=== PATIENT | male | born 1990 | race Caucasian/White ===

== ENCOUNTER 2016-09-22 04:00 | Inpatient (IN) | payer OTHER ==
[~2016-09-22] VITALS: Ht 175.3 cm; Wt 74.8 kg
--- NOTE | ~2016-09-22 | PN ---
Unit #: [id number] #: [id number] Patient: FLYNN JAVED [id number] [facility] [address] [place] [address] [id number] MR#: [id number] NAME: FLYNN JAVED ROOM: P121 Age: 26 Sex: M Admission Date: 09/22/2016 : 1990 Attending Physician: Darinel Hung M.D. Admitting Physician: Darinel Hung M.D. Primary Care Physician: Generic Doctor Not In System [facility] PROGRESS NOTES DATE 09/23/2016 DISCUSSION The patient is now denying that his ingestion of Benadryl was a suicide attempt stating that he was "just trying to constitution party." The patient is purposely vague during interview claiming that he has been admitted at [facility] in the past for reasons which he states he does not recall. He then admits that he was admitted there after having sustained self-inflicted lacerations. We will plan to watch the patient for the conclusion of 72 hours observation. If he continues to deny suicidal ideation, I will likely discharge the patient tomorrow as he is participating to no significant degree in the therapeutic milieu. Dictated by... Darinel Hung M.D. CB/elizabeth TD: 09/23/2016 16:05 JOB #: [id number] [facility] PROGRESS NOTES Page 1 of 1 X Darinel Hung MD X PROGRESS NOTE
--- NOTE | ~2016-09-22 | HP ---
Unit #: [id number] #: [id number] Patient: FLYNN JAVED [id number] [facility] [address] [place] [address] [id number] MR#: [id number] NAME: FLYNN JAVED ROOM: P121 Age: 26 Sex: M Admission Date: 09/22/2016 : 1990 Attending Physician: Darinel Hung M.D. Admitting Physician: Darinel Hung M.D. Primary Care Physician: Generic Doctor Not In System HISTORY AND PHYSICAL HISTORY OF PRESENT ILLNESS The patient is a 26-year-old man who has been admitted to [facility] for suicidal ideations. PAST MEDICAL HISTORY History of suicide attempt, self-harming behaviors. PAST SURGICAL HISTORY None. ALLERGIES Tylenol, Haldol and Depakote. SOCIAL HISTORY Patient uses marijuana and cocaine. FAMILY HISTORY Medically noncontributory. REVIEW OF SYSTEMS CONSTITUTIONAL: Denies fever or chills. HEENT: Denies sore throat, ear pain or runny nose. CARDIOVASCULAR: Denies chest pain, irregular heart rhythm or palpitations. CHEST: Denies shortness of breath or cough. No hemoptysis. GASTROINTESTINAL: Denies nausea, vomiting, diarrhea or chronic constipation. ENDOCRINE: Denies increased thirst or urination. Denies recent weight loss or weight gain. GENITOURINARY: Denies dysuria, frequency, or hematuria. SKIN: Denies rashes. Endorses scars. HEMATOLOGIC: Denies any increased bleeding or bruising. MUSCULOSKELETAL: Denies hot, swollen joints. No generalized muscle pain. NEUROLOGIC: Denies problems with speech, vision, numbness, tingling. Denies loss of bowel or bladder control. HOME MEDICATIONS 1. Artane 10 mg p.o. in the morning. 2. Artane 5 mg p.o. in the p.m. 3. Effexor XR 225 mg p.o. in the evening. PHYSICAL EXAMINATION GENERAL: Patient is awake, alert, in no acute distress. VITAL SIGNS: Temperature, he refused to have his temperature taken, heart Unit #: [id number] #: [id number] Patient: FLYNN JAVED rate 112, respirations 17, blood pressure 143/88. HEIGHT: 5 feet 9 inches. WEIGHT: 165 pounds. HEENT: Head is atraumatic, normocephalic. Pupils equal, round and reactive. Extraocular movements are intact. No drainage from ears or nares. NECK: Supple. Trachea is midline. HEART: Regular rate and rhythm. LUNGS: Clear. ABDOMEN: Soft, nontender, nondistended. : Not done. SKIN: Warm, dry without any unusual rashes or lesions. EXTREMITIES: No clubbing, edema or cyanosis. NEUROLOGICAL: Cranial nerves II through XII intact. No focal deficits. Sensory and motor function grossly normal. Moves all extremities well. Coordination, gait normal. Deep tendon reflexes intact. IMPRESSION Psychiatric admission. RECOMMENDATIONS PSYCHIATRIC: Will be per psychiatry. MEDICAL: I see no contraindication to participate in facility's activities. MEDICAL PROGNOSIS Fair. MEDICAL CONDITION Stable. Dictated by... Vanesa Keane A.P.R.N. for Ivy Zaidi M.D. AM/elizabeth TD: 09/22/2016 15:17 JOB #: [id number] HISTORY AND PHYSICAL Page 1 of 1 X Vanesa Keane APRN X HISTORY AND PHYSICAL
--- NOTE | ~2016-09-22 | CO ---
Unit #: [id number] #: [id number] Patient: FLYNN JAVED [id number] [place] [address] [id number] MR#: [id number] NAME: FLYNN JAVED ROOM: [facility] Age: 26 Sex: M Admission Date: 09/22/2016 : 1990 Attending Physician: Darinel Hung M.D. Primary Care Physician: Generic Doctor Not In System Consultation Date: 09/22/2016 CONSULTATION REPORT REASON FOR CONSULTATION Sutures. SUBJECTIVE The patient states that he cut his left forearm. Sutures were placed today at an emergency department in [place]. The patient denies any nausea, vomiting, fever, or chills. OBJECTIVE GENERAL: The patient is awake, alert, in no acute distress. VITAL SIGNS: Heart rate 112, respirations 17, and blood pressure 143/88. HEENT: Head is atraumatic and normocephalic. Pupils are equal, round, and reactive. Extraocular movements are intact. CHEST: Lungs are clear. CARDIOVASCULAR: S1 and S2. SKIN: The patient has sutures on his left forearm. No signs or symptoms of infection. ASSESSMENT Left arm laceration with sutures. PLAN At this time, there are no signs or symptoms of infection to the sutures. We will keep the sutures in for approximately 7 days. The nursing staff has been informed to call for any signs or symptoms of infection. Dictated by... Vanesa Keane A.P.R.N. for Ivy Zaidi M.D. AM/jess TD: 09/22/2016 17:03 JOB #: [id number] Unit #: [id number] #: [id number] Patient: FLYNN JAVED CONSULTATION REPORT Page 1 of 1 X Vanesa Keane APRN X CONSULTATION REPORT
--- NOTE | ~2016-09-22 | PA ---
Unit #: [id number] #: [id number] Patient: FLYNN JAVED [id number] [facility] [address] [place] [address] [id number] I MR#: [id number] NAME: FLYNN JAVED ROOM: [facility] Age: 26 Sex: M Admission Date: 09/22/2016 : 1990 Date of Assessment: 09/22/2016 Attending Physician: Darinel Hung M.D. Admitting Physician: Darinel Hung M.D. Primary Care Physician: Generic Doctor Not In System PSYCHIATRIC ASSESSMENT IDENTIFYING INFORMATION The patient is a 26-year-old white male admitted in transfer from [facility] in [place] where he had arrived claiming to have taken an overdose of 60 Benadryl. CHIEF COMPLAINT None given. INFORMANT(S) Chart. Patient cannot be aroused for interview. HISTORY OF PRESENT ILLNESS The patient is a 26-year-old white male who had presented to [facility] in [place] with what was thought to be an altered mental status. The patient claimed to have taken an overdose of Benadryl. His drug screen is also positive for cocaine and cannabinoids. The patient was limited in his ability to be assessed, and when seen today he is sleeping soundly and cannot be aroused for interview. The patient started to indicate that he is prescribed Artane and Effexor. It is unclear why he would be taking these medications. The patient refused to allow staff to contact family in the emergency room in [place]. He was placed on a 72-hour hold given threats of suicide made. PAST PSYCHIATRIC HISTORY As noted previously, the patient claimed to have been prescribed Artane and Effexor, but it is unclear who had prescribed these medications. PAST MEDICAL HISTORY Noncontributory. MEDICATIONS As above. ALLERGIES None reported. FAMILY HISTORY Not obtained. SOCIAL HISTORY Apart from the substance abuse history, and the fact that the patient lives with his mother and grandmother no social history is available. Unit #: [id number] #: [id number] Patient: FLYNN JAVED MENTAL STATUS EXAMINATION Examination at this time reveals the patient to be a soundly sleeping white male who is abed and sleeping soundly. Multiple attempts to arouse the patient are unsuccessful. ASSETS AND LIABILITIES The patient's assets are to be assessed. Liabilities: Lack of resources. DIAGNOSTIC IMPRESSION 1. Cocaine use disorder. 2. Cannabis use disorder. 3. Psychotic disorder, unspecified. 4. Status post diphenhydramine ingestion per patient report. ASSETS AND LIABILITIES Assets: To be assessed. Liabilities: Lack of resources. Poor compliance with treatment. TREATMENT PLAN The patient remains hospitalized for safety and stabilization. I have left an order for p.r.nIna Granadosydis should the patient exhibit any aggressive behaviors. ESTIMATED LENGTH OF STAY 3 to 5 days. Dictated by... Darinel Hung M.D. Eva TD: 09/22/2016 13:39 JOB #: [id number] PSYCHIATRIC ASSESSMENT Page 1 of 1 X Darinel Hung MD X PSYCHIATRIC ASSESSMENT
== END 2016-09-24 17:51 | disposition home or self-care (01) | DRG 897 ==
LOC: P1S 10:42
DX: F14.90 Cocaine use, unspecified, uncomplicated (principal); R45.851 Suicidal ideations; F12.90 Cannabis use, unspecified, uncomplicated; F39 Unspecified mood [affective] disorder; S51.812D Laceration without foreign body of left forearm, subsequent encounter

== ENCOUNTER 2016-09-26 08:00 | Inpatient (IN) | payer OTHER ==
[~2016-09-26] VITALS: Ht 175.3 cm; Wt 86.2 kg
--- NOTE | ~2016-09-26 | HP ---
Unit #: [id number] #: [id number] Patient: ELIANA JAVED [id number] [facility] [address] [place] [address] [id number] I MR#: [id number] NAME: ELIANA JAVED ROOM: [facility] Age: 26 Sex: M Admission Date: 09/26/2016 : 1990 Attending Physician: Darinel Hung M.D. Admitting Physician: Darinel Hung M.D. Primary Care Physician: Generic Doctor Not In System HISTORY AND PHYSICAL The patient is a 26-year-old male admitted to [facility] on 09/26/2016 for suicidal ideations. Patient had a recent admission on 09/22/2016 where a full history and physical was completed. That history and physical has been reviewed. No changes need to be made. Dictated by... Janina Javier/lucretia TD: 09/27/2016 00:00 JOB #: [id number] HISTORY AND PHYSICAL Page 1 of 1 X MAGEN TELLO APRN HISTORY AND PHYSICAL
--- NOTE | ~2016-09-26 | PA ---
Unit #: [id number] #: [id number] Patient: ELIANA JAVED [id number] [facility] [address] [place] [address] [id number] MR#: [id number] NAME: ELIANA JAVED ROOM: P183 Age: 26 Sex: M Admission Date: 09/26/2016 : 1990 Date of Assessment: 09/27/2016 Attending Physician: Darinel Hung M.D. Admitting Physician: Darinel Hung M.D. Primary Care Physician: Generic Doctor Not In System PSYCHIATRIC ASSESSMENT REASON FOR ADMISSION The patient is a 26-year-old white male who now admits that he lied about a suicide attempt in order to gain admission to this hospital and subsequent transportation back to his home in [facility]. INFORMANT(S) Patient. RELIABILITY Poor. CHIEF COMPLAINT None given. HISTORY OF PRESENT ILLNESS The patient is a 26-year-old white male last discharged from this facility on 09/24/2016. The patient reported to [facility] claiming to have taken an overdose of Benadryl. The patient now admits that he had lied about the overdose stating that he wished to be admitted to this facility so that he could be transported back to his home town in [place]. The patient vehemently denies any current suicidal or homicidal ideation. For a more complete history of present illness, please refer to previous dictated notes. PAST PSYCHIATRIC HISTORY Reviewed, no changes. FAMILY HISTORY Reviewed, no changes. SOCIAL HISTORY Reviewed, no changes. MEDICAL HISTORY Reviewed, no changes. MEDICATION HISTORY 1. Artane. 2. Effexor XR. 3. Prolixin decanoate. ALLERGIES None reported. Unit #: [id number] #: [id number] Patient: ELIANA JAVED MENTAL STATUS EXAM At this time, reveals the patient to be a well-developed, well-nourished white male appearing stated age. He is in no apparent physical distress at the time of examination. He is awake, alert, oriented in all spheres. His mood is euthymic. His affect full range. Speech is generally relevant and coherent. There are no gross deficits in memory or cognition noted. Intelligence is judged to be in the average range based on fund of knowledge. The patient is cooperative throughout the interview. He denies current suicidal/homicidal ideation or psychotic features. Judgement and insight appear to be intact. ASSETS AND LIABILITIES Patient's assets to be assessed. Liabilities, lack of resources. DIAGNOSTIC IMPRESSION 1. Schizoaffective disorder by history. 2. Borderline personality disorder. 3. Malingering. PSYCHIATRIC PLAN/TREATMENT GOALS The patient will be discharged today with no medication changes reported. He is admitting to have fabricated symptoms in order to gain admission to the hospital and subsequent transportation to his hometown. Dictated by... Darinel Hung M.D. RAUL/elizabeth TD: 09/27/2016 13:34 JOB #: [id number] PSYCHIATRIC ASSESSMENT Page 1 of 1 X Darinel Hung MD X PSYCHIATRIC ASSESSMENT
--- NOTE | ~2016-09-26 | DS ---
Unit #: [id number] #: [id number] Patient: ELIANA JAVED [id number] [facility] [address] [place] [address] [id number] MR#: [id number] NAME: ELIANA JAVED ROOM: P183 Age: 26 Sex: M Admission Date: 09/26/2016 : 1990 Discharge Date: 09/27/2016 Attending Physician: Darinel Hung M.D. Primary Care Physician: Generic Doctor Not In System DISCHARGE SUMMARY REASON FOR ADMISSION The patient is a 26-year-old white male, who presented to [facility], claiming to have taken a half bottle of Benadryl. He now admits that he had fabricated this attempt in order to gain admission to the hospital and subsequent transportation to his hometown at [place], [place]. HOSPITAL COURSE The patient admitted to this physician that he had fabricated his threats of suicide. He requested discharge on 09/27/2016. He was informed that we could provide transportation only as far as [place], [place], and he was agreeable with this plan. FINAL DIAGNOSES Schizoaffective disorder per patient history, borderline personality disorder, malingering. DISPOSITION ON DISCHARGE The patient is discharged on the following medications; Artane 5 mg q.h.s. and 10 mg q.a.m. for extrapyramidal symptoms, Effexor XR 225 mg daily for depression, Prolixin Decanoate, dose unknown for psychosis. DISCHARGE INSTRUCTIONS No dietary or physical restrictions were placed upon the patient at the time of discharge. FOLLOWUP Followup will take place through the auspices of community mental health resources in the [facility] area. PROGNOSIS The patient's prognosis is considered fair. Dictated by... Darinel Hung M.D. CB/jess TD: 09/28/2016 03:31 JOB #: [id number] Unit #: [id number] #: [id number] Patient: ELIANA JAVED DISCHARGE SUMMARY Page 1 of 1 X Darinel Hung MD X DISCHARGE SUMMARY
--- NOTE | ~2016-09-26 | DS ---
Unit #: [id number] #: [id number] Patient: ELIANA JAVED [id number] [facility] [address] [place] [address] [id number] I MR#: [id number] NAME: ELIANA JAVED ROOM: 83 Age: 26 Sex: M Admission Date: 09/26/2016 : 1990 Discharge Date: 09/27/2016 Attending Physician: Darinel Hung M.D. Primary Care Physician: Generic Doctor Not In System DISCHARGE SUMMARY REASON FOR ADMISSION The patient is a 26-year-old white male, admitted following an ingestion of Benadryl. DIAGNOSTIC STUDIES LABORATORY RESULTS: Included urine drug screen positive for cannabis. HOSPITAL COURSE The patient was admitted to the [address] [place] [address] unit and placed on suicide precautions. He was continued on previously prescribed medications including Effexor and Artane and the patient takes Artane secondary to receiving a monthly injection of Prolixin Decanoate which he states "they started in [facility]." The patient consistently denied suicidal ideation during his brief stay in the hospital. By 09/24/2016, he had been under observation for 3 days and at no point had made any suicidal threats. Continue to complain that he was "just trying to libertarian" when he took his overdose of Benadryl. With inclusion of 72 hours of observation, discharge was ordered. FINAL DIAGNOSES Cocaine use disorder; cannabis use disorder; mood disorder, unspecified. DISPOSITION ON DISCHARGE The patient is discharged on the following medications; Artane 5 mg q.a.m. and 10 mg at h.s. for extrapyramidal symptoms, Effexor XR 225 mg daily for depression. DISCHARGE INSTRUCTIONS No dietary or physical restrictions were placed on the patient at the time of discharge. FOLLOWUP Followup will take place through the auspices of community mental health resources. PROGNOSIS The patient's prognosis is considered fair. Dictated by... Darinel Hung M.D. CB/modl Unit #: [id number] #: [id number] Patient: ELIANA JAVED TD: 09/28/2016 02:28 JOB #: [id number] DISCHARGE SUMMARY Page 1 of 1 X Darinel Hung MD DISCHARGE SUMMARY
== END 2016-09-27 14:15 | DRG 885 ==
LOC: P1E 13:48
DX: F25.9 Schizoaffective disorder, unspecified (principal); F60.3 Borderline personality disorder; Z76.5 Malingerer [conscious simulation]

== ENCOUNTER 2016-10-04 05:00 | Inpatient (IN) | payer OTHER ==
[~2016-10-04] VITALS: Ht 175.3 cm; Wt 79.4 kg
--- NOTE | ~2016-10-04 | HP ---
Unit #: [id number] #: [id number] Patient: ELIANA JAVED [id number] [place] [address] [id number] I MR#: [id number] NAME: ELIANA JAVED ROOM: P255 Age: 26 Sex: M Admission Date: 10/04/2016 : 1990 Attending Physician: Darinel Hung M.D. Admitting Physician: Darinel Hung M.D. Primary Care Physician: Generic Doctor Not In System HISTORY AND PHYSICAL HISTORY OF PRESENT ILLNESS The patient is a 26 year old admitted to [address] [place] [address] reporting visual hallucination. He was just discharged from this facility. The patient was seen and H and P dated 09/22/2016 was reviewed. This is current. No changes. Please see H and P dated 09/22/2016. Dictated by... Raina Zeng/leander TD: 10/05/2016 14:57 JOB #: [id number] HISTORY AND PHYSICAL Page 1 of 1 X Abbi Polo HISTORY AND PHYSICAL
--- NOTE | ~2016-10-04 | PA ---
Unit #: [id number] #: [id number] Patient: ELIANA JAVED [id number] [facility] [address] [place] [address] [id number] MR#: [id number] NAME: ELIANA JAVED ROOM: P255 Age: 26 Sex: M Admission Date: 10/04/2016 : 1990 Date of Assessment: 10/05/2016 Attending Physician: Darinel Hung M.D. Admitting Physician: Darinel Hung M.D. Primary Care Physician: Generic Doctor Not In System PSYCHIATRIC ASSESSMENT IDENTIFYING INFORMATION The patient is a 26-year-old homeless white male admitted after he had presented to [facility] claiming to be experiencing hallucinations and paranoia. CHIEF COMPLAINT "I'm ready to go home. I've got my bus ticket." INFORMANT(S) Patient, reliability is fair. HISTORY OF PRESENT ILLNESS The patient is a 26-year-old male with a history of several previous admissions to this facility over the past few weeks. These have been related to the patient's claims of having taken overdoses of Benadryl though it is a suspicion of this physician that the patient may have feigned these ingestions in order to gain admittance to the hospital given his homeless status. Whatever the case, the patient was admitted to [facility] last evening claiming to have taken a pill which caused him to hallucinate and become paranoid. When seen today, the patient no longer exhibits any psychosis and denies any suicidal or homicidal ideation. He states that he has a bus ticket to return to [facility], and is requesting discharge. For more complete history of present illness, please refer to previously dictated notes. PAST PSYCHIATRIC HISTORY Reviewed, no changes. PAST MEDICAL HISTORY Reviewed, no changes. MEDICATIONS Artane, Effexor XR, Prolixin Decanoate. ALLERGIES Acetaminophen, Haldol, Depakote, onions. FAMILY HISTORY Reviewed, no changes. SOCIAL HISTORY Reviewed, no changes. Unit #: [id number] #: [id number] Patient: ELIANA JAVED MENTAL STATUS EXAMINATION Examination at this time reveals the patient to be a well-developed well-nourished white male appearing stated age. He is in no apparent physical distress at the time of examination. He is awake, alert, and oriented in all spheres. His mood is euthymic, his affect full range. Speech is generally well coherent. There are no gross deficits in memory or cognition noted. Intelligence is judged to be in the average range based on fund of knowledge. The patient is cooperative throughout the interview. He is denying current suicidal or homicidal ideation or psychotic features. Judgment and insight appear to be reasonably intact. No signs of tardive dyskinesia are noted. ASSETS AND LIABILITIES The patient's assets are to be assessed. Liabilities: Lack of resources, sociopathy, possible malingering. DIAGNOSTIC IMPRESSION 1. Schizoaffective disorder per patient history. 2. Malingering. DISPOSITION ON DISCHARGE The patient is discharged on the following medications: 1. Artane 10 mg q. day and 5 mg at h.s. for extrapyramidal symptoms. 2. Prolixin Decanoate dose unknown intramuscularly q. 2 weeks for psychosis. 3. Effexor XR 25 mg daily for depression. DIET AND ACTIVITY No dietary or physical restrictions placed on the patient at the time of discharge. FOLLOWUP Followup will take place through the auspices of community mental health resources. PROGNOSIS Remains guarded. Dictated by... Darinel Hugn M.D. CB/leander TD: 10/05/2016 13:31 JOB #: [id number] Unit #: [id number] #: [id number] Patient: ELIANA JAVED PSYCHIATRIC ASSESSMENT Page 1 of 1 X Darinel Hung MD X PSYCHIATRIC ASSESSMENT
--- NOTE | ~2016-10-04 | DS ---
Unit #: [id number] #: [id number] Patient: ELIANA JAVED [id number] [facility] [address] [place] [address] [id number] I MR#: [id number] NAME: ELIANA JAVED ROOM: P255 Age: 26 Sex: M Admission Date: 10/04/2016 : 1990 Discharge Date: 10/05/2016 Attending Physician: Darinel Hung M.D. Primary Care Physician: Generic Doctor Not In System DISCHARGE SUMMARY REASON FOR ADMISSION The patient is a 26-year-old white male, admitted after he had presented to [facility] claiming to be experiencing psychosis after ingesting a pill of unknown origin. DIAGNOSTIC STUDIES LABORATORY RESULTS: Pending at the time of discharge. HOSPITAL COURSE The patient was admitted to the [facility] unit and placed on suicide precautions. He denied suicidal ideation when seen by this physician on 10/05/2016 and denied any psychotic symptoms. He exhibited no impairment of judgment or insight and his mood was noted to be euthymic and his affect full range. He requested discharge on that day citing a wish to return to his home of [place], [place]. He was not felt to meet criteria for involuntary hospitalization at that point and there was strong suspicion on this physician's that the patient had in fact fabricated his symptoms of "psychosis" in order to gain admittance to the hospital. Discharge was ordered. FINAL DIAGNOSES Schizoaffective disorder per patient's history; borderline personality disorder, malingering. DISPOSITION ON DISCHARGE The patient is discharged on the following medications: Artane 10 mg q.a.m., 5 mg at h.s. for extrapyramidal symptoms; Effexor XR 225 mg daily for depression; Prolixin Decanoate dose unknown intramuscular 2 weeks for psychosis. DISCHARGE INSTRUCTIONS No dietary or physical restrictions were placed on the patient at the time of discharge. FOLLOWUP Followup will take place through the auspices of community mental health resources in the [place], [place] area. PROGNOSIS The patient's prognosis is considered fair. Dictated by... Unit #: [id number] #: [id number] Patient: ELIANA JAVED Darinel Hung M.D. CB/jess TD: 10/05/2016 17:50 JOB #: [id number] DISCHARGE SUMMARY Page 1 of 1 X Darinel Hung MD DISCHARGE SUMMARY
[2016-10-05 11:37] LABS: AMPHETAMINE NEG (NEG); BARBITURATES NEG (NEG); BENZODIAZEPINES NEG (NEG); COCAINE NEG (NEG); MARIJUANA NEG (NEG); OPIATES NEG (NEG); TRICYCLIC ANTIDEPRESSANTS NEG (NEG); U METHADONE NEG (NEG)
== END 2016-10-05 15:15 | disposition home or self-care (01) | DRG 885 ==
LOC: P2L 13:17 → POF 13:17 → P2L 15:44
PROVIDERS: Specialist
DX: F25.9 Schizoaffective disorder, unspecified (principal); Z59.0 Homelessness; Z76.5 Malingerer [conscious simulation]
CPT/HCPCS: 80307